=== PATIENT | male | born 1955 | race Caucasian/White ===

== ENCOUNTER 2020-04-06 06:30 | Day surgery (SDC) | payer OTHER, SELFPAY ==
[2020-04-04 14:14] VITALS: BMI 38.0
[2020-04-06 06:42] VITALS: BP 153/94; PULSE 79; RESP 18; TEMP 36.2; O2SAT 99
--- NOTE | 2020-04-06 06:45 | ANES.PREANE2 ---
Pre-Anesthetic Assessment Pre-Anesthetic Assessment: Height/Weight: Height 1.83 m Weight 127.006 kg Temp Pulse Resp BP Pulse Ox 97.2 F L 79 18 153/94 99 04/06/20 06:42 04/06/20 06:42 04/06/20 06:42 04/06/20 06:42 04/06/20 06:42 Proposed Procedure: Operation Date: 04/06/20 07:00 Proposed Procedures p Colonoscopy(Not Applicable) - Rodolfo Guerra MD Was Beta Paulette taken within 24 hours: Yes Last intake: Intake Last Liquid Date 04/05/20 Last Liquid Time 20:30 Last Solid Date 04/04/20 Last Solid Time 12:00 Last Intake: 09:47 Social: Social History: Alcohol (Beer 8-12 per day) and No tobacco Exam: Pre-Anes Outpt Exam: alert, oriented x 3, clear to auscultation bilaterally and regular rate & rhythm Airway: Submandibular: WNL Cervical ROM: WNL MP: 2 Dentition: Chipped (upper front) History/ROS: No significant complaints Pulmonary: Pulmonary: None reported CV/HEM: CV/HEM: DVT (Factor 5 disorder) and HTN : : None reported Hepatic: Hepatic: None reported GI: GI: GERD (meds ) Metabolic: Metabolic: None reported Musc/skel: Musc/skel: None reported Neuropsych: Neuropsych: None reported Anesthetic Plan: ASA status: 3 Anesthesia: MAC Risk of > 500 ml blood loss (7ml/kg in children): No PFSH Anesthesia PFSH: Social History (Updated 04/04/20 @ 14:08 by Nora Contreras) Smoking and tobacco status: never smoked Data Anesthesia Cardiac Studies: No Data to Display
--- NOTE | 2020-04-06 06:53 | W.PM.OPSUD ---
Surgery/Procedure H&P Update DATE OF PROCEDURE: April 06, 2020 DATE H&P PERFORMED: 03/20/20 H&P UPDATE INFORMATION: No changes to prior documentation PLANNED PROCEDURE: Operation Date: 04/06/20 07:00 Proposed Procedures p Colonoscopy(Not Applicable) - Rodolfo Guerra MD
[2020-04-06] MEDS: sodium chloride 0.9% 1,000 ML 30 ML IV (07:13)
--- NOTE | 2020-04-06 07:31 | ANE.PACU2 ---
Inpatient post-anesthesia follow up: Airway intact: Yes Vital signs: Temperature 97.2 F Pulse Rate 79 Respiratory Rate 18 Blood Pressure 153/94 Pulse Oximetry 99 Oxygen Delivery Me thod Room Air Oxygen Flow Rate Fraction of Inspir ed Oxygen Hydration adequate: Yes Nausea and vomiting: No Pain level: 1 Mental status: Baseline
[2020-04-06 07:34] VITALS: BP 120/74; PULSE 63; RESP 18; TEMP 36.1; O2SAT 100
[2020-04-06 07:43] VITALS: BP 133/77; PULSE 61; RESP 18; O2SAT 99
== END 2020-04-06 07:52 | disposition home or self-care (01) ==
PROVIDERS: PCP Family Medicine; Visit Provider Surgery
PROC: 0DJD8ZZ Inspection of Lower Intestinal Tract, Via Natural or Artificial Opening Endoscopic (ICD-10-PCS; CPT 45378; principal; 2020-04-06 07:00)
DX: Z12.11 Encounter for screening for malignant neoplasm of colon (principal); Z86.010 Personal history of colon polyps; K64.8 Other hemorrhoids; I10 Essential (primary) hypertension; Z86.718 Personal history of other venous thrombosis and embolism; K21.9 Gastro-esophageal reflux disease without esophagitis; Z79.891 Long term (current) use of opiate analgesic; Z79.01 Long term (current) use of anticoagulants
CPT/HCPCS: 12345; 45378; J2704; J7030

== ENCOUNTER 2020-04-07 20:24 | Emergency (ER) | payer OTHER, SELFPAY ==
[2020-04-07 20:34] VITALS: BP 168/80; PULSE 74; RESP 16; TEMP 36.6; O2SAT 98; BMI 38.0
[2020-04-07 22:05] VITALS: PULSE 69
[2020-04-07 22:08] VITALS: BP 171/85; PULSE 69; RESP 18; O2SAT 99
--- NOTE | 2020-04-07 22:20 | ED_ITS ---
HPI - Extremity Problem General: Chief complaint: Extremity Injury, Upper Stated complaint: ARM LAC Time Seen by Provider: 04/07/20 22:20 History of Present Illness: HPI Narrative: Patient is a 64-year-old male comes to the ED with laceration on right forearm. Patient says injury occurred just prior to arrival. Patient said a wooden board hit forearm causing laceration. Patient's last tetanus was 3 to 4 years ago. Associated symptoms: Deny chest pain, fever(s) or rash Review of Systems Const: Denies: fever(s), chills or fatigue Eyes: Denies: change in vision or eye discomfort ENMT: Denies: throat pain, odynophagia, nasal discharge or nasal congestion Card: Denies: chest pain, palpitations, edema, swelling of feet/ankles, dys pnea on exertion or orthopnea Resp: Denies: dyspnea, productive cough or non-productive cough GI: Denies: abdominal pain, nausea, vomiting, diarrhea, constipation or hematochezia : Denies: flank pain, difficulty urinating, dysuria or hematuria Musc: Denies: neck pain, back pain or extremity swelling Skin/Breast: Reports: new lesions (Laceration on right forearm); Denies: rash Neuro: Denies: headache(s), numbness in extremities or weakness in extremities PFSH ED PFSH: Social History Smoking and tobacco status: never smoked Physical Exam Const: COMMON NORMALS: no acute distress, patient oriented x3, healthy appearing and alert GENERAL APPEARANCE: cooperative and comfortable HENMT: COMMON NORMALS: normocephalic HEAD & SCALP: normocephalic MOUTH: Normal oral and palatal mucosa present THROAT: posterior oropharynx normal and uvula midline Neck/C-Spine: COMMON NORMALS: supple GENERAL: Yes normal visual inspection Resp: COMMON NORMALS: normal respiratory effort, No retractions, No use of accessory muscles and clear to auscultation bilaterally AUSCULTATION: clear to auscultation bilaterally Cardio: COMMON NORMALS: regular rate, regular rhythm, S1 normal heart sound present, S2 normal heart sound present, No gallops present (Cardio), No clicks present (Cardio), No murmurs present (Cardio) and Peripheral pulses 2+ throughout RATE: regular rate RHYTHM: regular rhythm HEART SOUNDS: S1 normal heart sound present and S2 normal heart sound present PERIPHERAL PULSES: Peripheral pulses 2+ throughout GI: COMMON NORMALS: Normal to inspection, nondistended, normoactive bowel sounds present, Soft to palpation, non-tender and no masses PALPATION: Yes Soft to palpation : COMMON NORMALS: Yes no CVA tenderness BLADDER/KIDNEY EXAM: Yes no CVA tenderness Back/Pelvis: COMMON NORMALS: no CVA tenderness Extremity: NARRATIVE EXTREMITY EXAM: Patient has a superficial laceration on right forearm. Laceration is V-shaped. GENERAL: Yes normal exam except as noted Neuro: COMMON NORMALS: patient oriented x3 and moves all extremities SENSORIUM/ORIENTATION: Yes alert Skin: GENERAL SKIN EXAM: dry skin TRAUMA: laceration irregular (Superficial 2.5 cm V-shaped laceration.) and superficial; not actively bleeding, no pulsatile bleeding and no foreign bodies present Procedures Laceration Laceration 1: Site: upper extremity Side (If applicable): right Size (cm): 2.5 Description: irregular (v shaped) and clean Depth: simple, single layer Local Anesthetic: lidocaine 1% and with epi Amount of anesthesia used (mL): 10 Pre-repair: irrigated extensively (With normal saline and cleaned with CHG) Skin layer closed with: nylon Size (cm): 4-0 Number of sutures: 4 Technique: simple, interrupted Course Vital Signs: Vital signs: Vital Signs Temperature 97.9 F 04/07/20 20:34 Pulse Rate 85 04/07/20 23:49 Respiratory Rate 17 04/07/20 23:49 Blood Pressure 165/85 04/07/20 23:49 Pulse Oximetry 98 04/07/20 23:49 MDM - Extremity (Nontraumatic) MDM Narrative: Medical decision making narrative: Patient is a 64-year-old male who comes to the ED with a laceration on the right forearm. Laceration was irrigated with normal saline and cleaned with CHG swab. Local lidocaine 1% with epi was used as anesthetic. Laceration was closed with 4 sutures. Patient was given a dose of Keflex while here in the ED and sent home with a prescription for Keflex. Patient told to have sutures removed in 7 to 10 days. Keep laceration site bandaged and dry for the first 48 hours then clean and re- bandage daily. Patient understood and agreed with plan. Discharge Plan Discharge Patient Disposition: Home, Self-Care Clinical Impression: Laceration Condition: Stable Prescriptions: New Keflex 500 mg capsule 500 mg PO QID 3 Days Qty: 12 RF: 0 No Action warfarin 7.5 mg Tablet See Rx Instructions .ROUTE .COMPLEX RF: 0 warfarin 2.5 mg Tablet See Rx Instructions .ROUTE .COMPLEX RF: 0 pantoprazole 40 mg Tablet,Delayed Release (Dr/Ec) 40 mg PO DAILY RF: 0 atenolol 50 mg Tablet 50 mg PO DAILY RF: 0 Discharge Orders: Discharge Order (Routine); Ordered 04/07/20 Ordered By: Amari Jacob Referrals: Jesse Marie Jr, MD [Primary Care Provider] - Discharge Diet: Regular Discharge Activity: Resume usual activity Patient Instructions: Laceration (ED) Activity Restrictions/Additional Instructions: Leave bandage on for the first 48 hours and keep it dry. After that you can clean with warm soapy water and cover with bandage daily. You can also apply some triple antibiotic ointment. Take full course of antibiotics as prescribed. Have sutures removed by your PCP in 7 to 10 days. Watch for signs of infection such as redness, warmth, increased tenderness and puslike drainage. If you see any those signs return to the ED, PCP or urgent care for reevaluation. Discharge Date/Time: 04/07/20 23:47 Coding Level of Care Code ED Certified Composites Technician for [facility] Exam Comprehensive
[2020-04-07] MEDS: cephALEXin 500 mg Capsule PO (22:57)
[2020-04-07 23:49] VITALS: BP 165/85; PULSE 85; RESP 17; O2SAT 98
== END 2020-04-07 23:47 | disposition home or self-care (01) ==
PROVIDERS: Emergency Provider Physician Assistant; PCP Family Medicine
DX: S51.811A Laceration without foreign body of right forearm, initial encounter (principal); Z79.01 Long term (current) use of anticoagulants; W22.8XXA Striking against or struck by other objects, initial encounter
CPT/HCPCS: 12001; 12345; 99281; 99283; J2001

== ENCOUNTER 2023-04-03 20:42 | Emergency (ER) | payer OTHER, MEDICARE, SELFPAY ==
[2023-04-03 20:46] VITALS: BP 163/80; PULSE 89; RESP 15; O2SAT 96; BMI 37.3
--- NOTE | 2023-04-03 20:54 | PC.NURSE ---
clamp placed in triage.
--- NOTE | 2023-04-03 23:03 | ED_ITS ---
HPI - Epistaxis General: Chief complaint: Epistaxis Stated complaint: Nose bleed Time Seen by Provider: 04/03/23 22:39 History of Present Illness: Patient presents today to the ER with epistaxis. Patient has bleeding from his right nostril. Patient is on warfarin for factor V. Patient's been in ER for about an hour with nostril clamp on. And just as we take it off he starts bleeding again at the right nostril. Patient states his last time he checked his INR was 2.9 and he can check it at home with his meter. Review of Systems General: Reports: 10 or more systems reviewed and unremarkable except in HPI and below PFSH ED PFSH: Social History Smoking and tobacco status: never smoked Physical Exam Const: COMMON NORMALS: no acute distress, average body habitus, patient oriented x3, no limitations, healthy appearing, alert and well nourished HENMT: COMMON NORMALS: normocephalic, atraumatic, hearing grossly normal bilaterally, external ears normal and Normal external nose present (Patient is bleeding from his right nostril. Just as soon as the nose clamp) HEAD & SCALP: normocephalic and atraumatic NOSE: Normal external nose present (Patient is bleeding from his right nostril. Just as soon as the nose clamp) EXTERNAL EAR: Yes external ears normal Neck/C-Spine: COMMON NORMALS: full ROM, no lymphadenopathy, supple, no meningeal signs, no JVD and Thyroid normal THYROID: Thyroid normal Chest: COMMONS NORMALS: normal inspection of the chest and normal palpation of entire chest wall Resp: COMMON NORMALS: normal respiratory effort, No retractions, No use of accessory muscles and clear to auscultation bilaterally AUSCULTATION: clear to auscultation bilaterally Cardio: COMMON NORMALS: no JVD GI: COMMON NORMALS: Normal to inspection, nondistended, normoactive bowel sounds present, Soft to palpation, non-tender, No hepatosplenomegaly present and no masses PALPATION: Yes Soft to palpation and Yes No hepatosplenomegaly present : COMMON NORMALS: Yes no CVA tenderness BLADDER/KIDNEY EXAM: Yes no CVA tenderness Back/Pelvis: COMMON NORMALS: no CVA tenderness Neuro: COMMON NORMALS: patient oriented x3 SENSORIUM/ORIENTATION: Yes alert MENINGEAL SIGNS: Yes no meningeal signs Procedures Epistaxis Control Time Out Performed: Yes Nostril: right Direct Inspection: yes and unable to visualize Clots Removed by: blowing nose Device Inserted: hemostatic balloon Patient Tolerated Procedure: well and no complications Course Vital Signs: Vital signs: Vital Signs Pulse Rate 89 04/03/23 20:46 Respiratory Rate 15 04/03/23 20:46 Blood Pressure 163/80 04/03/23 20:46 Pulse Oximetry 96 04/03/23 20:46 Oxygen Delivery Me thod Room Air 04/03/23 20:46 MDM - Epistaxis Medical Decision Making Patient is already tried nasal clamp, Afrin, nasal saline, and is on Coumadin that he cannot come off of. A Rhino Rocket was placed in his right nostril which did stop the bleeding. Patient will be discharged home with this Rhino Rocket in place. said she was a nurse and she could take it out tomorrow. Patient was informed that if he started bleeding again he should put the clamp back on and come back for another Rhino Rocket. We will consult case management and see if we get an ENT appointment quicker than the when he has already through [facility] in [facility]. Differential Diagnosis Likely anterior epistaxis; Unlikely nasal bone fracture Medical Records I reviewed the patient's medical records. Lab Data I reviewed the patient's lab results. Discharge Plan Discharge Patient Disposition: Home Clinical Impression: Epistaxis Condition: Stable Prescriptions: No Action warfarin 7.5 mg Tablet See Rx Instructions .ROUTE .COMPLEX Rx Instructions: 7.5 mg orally friday thru friday. warfarin 2.5 mg Tablet See Rx Instructions .ROUTE .COMPLEX Rx Instructions: 2.5 mg orally on friday pantoprazole 40 mg Tablet,Delayed Release (Dr/Ec) 40 mg PO DAILY atenolol 50 mg Tablet 50 mg PO DAILY Discharge Orders: Discharge ED (Routine); Ordered 04/03/23 Ordered By: Dustin Rodgers Referrals: Verena Valdez NP [Primary Care Provider] - 1-3 days Patient Instructions: Nosebleed (ED) Activity Restrictions/Additional Instructions: Please follow-up or remove the Rhino Rocket tomorrow. You may run the risk of bleeding again immediately. Please use Afrin in the nasal clamp if you do. If it does not stop within 30 minutes please return to the ER for another Rhino Rocket placement. You have been referred to case management for ENT referral. Please anticipate their call. Coding Level of Care Code ED Display Coordinator for Juan David Alamo
[2023-04-03 23:05] VITALS: BP 169/93; PULSE 66; RESP 17; O2SAT 99
[2023-04-03 23:26] VITALS: BP 159/67; PULSE 67; RESP 19; O2SAT 98
--- NOTE | 2023-04-04 08:05 | DCPLANNER ---
Addendum entered by Sharron Irving 04/25/23 10:03: Patient had a follow up appointment scheduled with ENT - patient did attend appointment. Addendum entered by Sharron Irving 04/06/23 08:44: Patient has a follow up appointment scheduled for Saturday, April 08, 2023 at 10:[address] Hinton at ENT. Original Note: market research manager had message to schedule a follow up appointment for patient with ENT. market research manager sent patients information to the front office staff at ENT. Patients information will be printed and reviewed. Clinic will call patient with appointment information.
== END 2023-04-03 23:30 | disposition home or self-care (01) ==
PROVIDERS: Emergency Provider Emergency Medicine; PCP Nurse Practitioner Family
DX: R04.0 Epistaxis (principal); Z79.01 Long term (current) use of anticoagulants
CPT/HCPCS: 30901; 99282

== ENCOUNTER → 2023-04-08 10:32 | Outpatient (BNVA) | payer OTHER, SELFPAY | PROVIDERS: PCP Nurse Practitioner Family; Visit Provider Otolaryngology | DX: R04.0 Epistaxis (principal); D68.9 Coagulation defect, unspecified; I10 Essential (primary) hypertension | CPT/HCPCS: 99203 ==

== ENCOUNTER → 2023-04-16 09:33 | Outpatient (BNVA) | payer OTHER, SELFPAY | PROVIDERS: PCP Nurse Practitioner Family; Visit Provider Otolaryngology | DX: R04.0 Epistaxis (principal) | CPT/HCPCS: 99213 ==